=== PATIENT | female | born 1970 | race Caucasian/White ===

== ENCOUNTER → 2016-06-09 | Outpatient (CLI) | payer OTHER ==
--- NOTE | 2016-06-09 12:00 | MA ---
Screening Digital Mammogram With iCAD - June 09, 2016 Indication: Routine screening. Mother diagnosed with breast cancer in her 60s. Technique: Standard cephalocaudal and mediolateral oblique projections were obtained. This examinat ion was processed by the [employer] computer-aided detection system. Comparison: February 2015, January 2014, and January 2013. Breast density: Type B. Findings: CAD was reviewed. A new focal asymmetry in the deep upper right breast on the MLO view is n ew since the prior studies. No correlate on the CC view suggests this may represent dense superimpose d fibroglandular tissue. The left mammograms are negative. Impression: New asymmetry versus superimposed fibroglandular tissue in the deep upper right breast. BI-RADS 0: Needs additional imaging evaluation. Recommendation: Spot-compressed MLO, true lateral, and exaggerated lateral CC views of the right ric ast. If a dominant asymmetry persists, proceed with sonography at the discretion of the interpreting radiologist. [facility] will send a result letter to the patient. Negative mammography should not preclude additional workup of a clinically suspicious finding. The patient's information is entered into a reminder system with a target due date for her next mammo gram.
== END ==
LOC: BMCIMAGING 10:19
DX: Z12.31 Encounter for screening mammogram for malignant neoplasm of breast (principal); Z80.3 Family history of malignant neoplasm of breast
CPT/HCPCS: G0202

== ENCOUNTER → 2016-06-21 | Outpatient (CLI) | payer OTHER ==
--- NOTE | 2016-06-21 13:36 | MA ---
Right Unilateral Digital Diagnostic Mammogram History: Asymmetry on screening mammograms. Comparison: Mammograms through February 06, 2013. Technique: Spot compression CC and MLO and true lateral views. Findings: Additional views demonstrate no residual asymmetry or architectural distortion. Impression: BI-RADS 1: Negative. The finding on screening mammograms was likely related to overlappi ng fibroglandular tissue. Recommendations: Routine mammogram in one year. Findings and recommendations were given to the gumaro t at the time of the study. [facility] will send a result letter to the patient.
== END ==
LOC: BMCIMAGING 12:50
DX: Z12.31 Encounter for screening mammogram for malignant neoplasm of breast (principal)
CPT/HCPCS: G0206

== ENCOUNTER → 2017-07-05 | Outpatient (CLI) | payer OTHER | LOC: FIMAGING 12:42 | PROVIDERS: ATTEND Internal Medicine | DX: Z12.31 Encounter for screening mammogram for malignant neoplasm of breast (principal); Z80.3 Family history of malignant neoplasm of breast ==

== ENCOUNTER → 2018-07-28 | Outpatient (CLI) | payer OTHER | LOC: FIMAGING 15:07 | PROVIDERS: ATTEND Internal Medicine | DX: Z12.31 Encounter for screening mammogram for malignant neoplasm of breast (principal); Z80.3 Family history of malignant neoplasm of breast ==